=== PATIENT | male | born 1955 ===

== ENCOUNTER 2019-03-04 11:34 | Outpatient (CLI) | payer OTHER ==
--- NOTE | 2019-03-04 12:47 | Vascular Lab Report ---
PROCEDURE: VL VENOUS DUPLEX LE LT TECHNIQUE: Duplex Doppler ultrasound examination of the left leg venous system HISTORY: LT. LEG SWELLING COMPARISONS: None FINDINGS: Normal compressibility, vascular patency, and augmentation are present diffusely throughout the visua lized portion of the deep veins. No abnormal intraluminal echoes are visualized to suggest deep vein thrombus. IMPRESSION: No sonographic evidence of left leg DVT This document is electronically signed by Lester Layton MD., March 04 2019 01:45:10 PM ET
== END 2019-03-04 11:35 | disposition home or self-care (01) ==
LOC: US 11:34
PROVIDERS: ATTEND Radiology Diagnostic Radiology
DX: M79.89 Other specified soft tissue disorders (principal)